=== PATIENT | male | born 1980 | race Caucasian/White ===

== ENCOUNTER 2018-05-16 18:02 | Emergency (ER) | payer OTHER ==
--- NOTE | 2018-05-16 18:27 | EDPHY ---
H & P Stated Complaint: High INR Time Seen by Provider: 05/16/18 18:08 HPI/ROS: CHIEF COMPLAINT: Multiple complaints including left-sided neck pain HISTORY OF PRESENT ILLNESS: This is a 38-year-old male comes to the emergency department from [facility] where he is currently incarcerated. He takes Coumadin 7.5 mg daily for factor 5. INR was checked today and he was found found to have an INR of over 8, prompting his visit to the emergency department. He reports black stools. He tells me that he has had some constipation and has been straining to move his bowels. Patient tells me that he is mostly concerned about left-sided posterior neck pain that he is experiencing. He has been having this pain for the past 5 or 6 days. 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 However he left against medical advice. REVIEW OF SYSTEMS: A ten system review of systems was performed and is negative with the exception of the items mentioned in the HPI. Past medical history: Factor 5 Leiden with reported vascular dissection Kidney stone Past surgical history: None Family history: Factor 5 Leiden Social history: Currently incarcerated. History of IV drug abuse. General Appearance: Alert. Vital signs reviewed. Blood pressure 153/103 at triage. Eyes: Pupils equal and round, no conjunctival injection, no discharge. Anicteric. ENT, Mouth: Mucous membranes are moist, no oropharyngeal erythema or edema. Neck: No lymphadenopathy, supple. No carotid bruits. Respiratory: Lungs are clear to auscultation; no wheezes, rales, or rhonchi. Cardiovascular: Regular rate and rhythm; no murmur, rub, or gallop. Gastrointestinal: Abdomen is soft and nontender, no masses or organomegaly, bowel sounds normal. Skin: Warm and dry, no rashes on exposed skin, normal color. Back: Nontender to palpation over the thoracolumbar spine. No CVAT. Extremities: No lower extremity edema, no calf tenderness or swelling. Neurological: Alert and oriented. Moving all four extremities easily and equally. Cranial nerves II through XII are examined and are intact (visual acuity not tested). Strength is 5 over 5 bilaterally with testing of all major motor groups. Sensation is intact to light touch over all 4 extremities. Psychiatric: Normal affect. - Personal History Current Tetanus/Diphtheria Vaccine: No Current Tetanus Diphtheria and Acellular Pertussis (TDAP): No - Medical/Surgical History Hx Asthma: No Hx Chronic Respiratory Disease: No Hx Diabetes: No Hx Cardiac Disease: No Hx Renal Disease: No Hx Cirrhosis: No Hx Alcoholism: No Hx HIV/AIDS: No Hx Splenectomy or Spleen Trauma: No Other PMH: Factor 5, arterial disseaction in left neck, kidney stones - Social History Smoking Status: Former smoker Constitutional: Initial Vital Signs Temperature (C) 36.7 C 05/16/18 18:04 Heart Rate 80 05/16/18 18:04 Respiratory Rate 14 05/16/18 18:04 Blood Pressure 153/103 H 05/16/18 18:04 O2 Sat (%) 96 05/16/18 18:04 O2 Delivery Mode Room Air Allergies/Adverse Reactions: Penicillins Allergy (Verified 05/16/18 18:03) Home Medications: Medication Instructions Recorded Coumadin 7.5MG (*) 05/16/18 Hydroxyzine HCl 05/16/18 Zyprexa 05/16/18 Medical Decision Making ED Course/Re-evaluation: INR he denies 4.8. Stool is negative for blood. No other evidence of bleeding. [facility] has a protocol for dealing with the elevated INR. For an INR under 5 with no active bleeding it is recommended that Coumadin be held until INR is at an acceptable level and then resumed at the same or a lower dose. I will relay this information to the staff at the [facility]. My plan is that he will be able to return to the [facility]. He has complained about some neck pain to me. He tells me that he has a history of vertebral dissection. I have made an attempt to search records through [employer] and found an emergency department visit elsewhere in February of 2018. He had a CT angiogram of his neck performed at that time. There were no significant abnormalities noted. I have not been able to access any other records to further elucidate his history. Clearly, he is adequately anticoagulated; in fact, he is over anticoagulated. I am not proceeding with CT angiogram of his neck tonight and do not feel that one is warranted. He has a normal neurologic exam. I suspect musculoskeletal neck pain. I also considered malingering. - Data Points Laboratory Results: Laboratory Results 05/16/18 18:50 Medications Given: Discontinued Medications Acetaminophen (Tylenol) 1,000 mg PO EDNOW ONE Stop: 05/16/18 19:42 Last Admin: 05/16/18 19:46 Dose: 1,000 mg Departure - Departure Disposition: Home, Routine, Self-Care Clinical Impression: Elevated INR Condition: Good Instructions: Warfarin (By mouth) Additional Instructions: INR in the emergency room tonight was 4.87. According to the [facility] protocol, for an INR under 5 without active bleeding, recommended treatment is to hold Coumadin until the INR is at an acceptable level. At that point Coumadin can be reinstituted at the same or a lower dose. In the emergency department he had stool that was negative for blood. We have not found other evidence of bleeding. I feel that he can safely return to the [facility] and have his Coumadin held. He received Tylenol 1000 mg for report of neck pain. Referrals: [facility] [Outside] - As per Instructions
[2018-05-16 19:00] LABS: PLATELET COUNT 182 10^3/uL (150-400)
[2018-05-16 19:12] LABS: INR 4.87 (0.83-1.16); PROTIME(PATIENT) 44.9 SEC (12.0-15.0)
[2018-05-16] MEDS ORDERED: ACETAMINOPHEN 500 MG TAB PO ONE (19:41)
[2018-05-16 20:30] VITALS: BP 127/92
== END 2018-05-16 20:29 | disposition home or self-care (01) ==
DX: R79.1 Abnormal coagulation profile (principal); Z87.891 Personal history of nicotine dependence; Z79.01 Long term (current) use of anticoagulants

== ENCOUNTER 2018-07-28 10:38 | Emergency (ER) | payer MEDICAID, OTHER ==
--- NOTE | 2018-07-28 10:55 | EDPHY ---
HPI/HX/ROS/PE/MDM Narrative: CHIEF COMPLAINT: Neck pain, nausea HPI: The patient is a 38 y/o male with a history of Factor V Leiden deficiency currently not on anticoagulants and prior history of vertebral artery dissection 2 years ago who complains of left-sided neck pain worsening over the last 3 days. His pain is on the same side as his prior dissection and feels similar to him. He complains of associated nausea related to the pain. He took a hot shower in an attempt to treat the pain with no relief. He denies any other symptoms including fever, weakness, paresthesias, abdominal pain, diarrhea , vomiting, recent illness, recent trauma. He has been off his Coumadin for 1 month. When he was seen here in May, [facility] records were reviewed and showed a normal neck CTA in February 2018. REVIEW OF SYSTEMS: A comprehensive 10 system review of systems is otherwise negative aside from elements mentioned in the history of present illness. PMH: Factor V Leiden deficiency; vertebral artery dissection, did not undergo surgery. Prior medical records reviewed including ED visit 05/16/18 for neck pain, black stool. SOCIAL HISTORY: History of IV drug abuse. Single. PHYSICAL EXAM: General:Patient is alert, in no acute distress. ENT:Eyes are normal to inspection. ENT inspection normal. Neck: Normal inspection. Full range of motion. Respiratory:No respiratory distress. Breath sounds normal bilaterally. Cardiovascular: Regular rate and rhythm. Strong peripheral pulses. Normal cap refill. Abdomen:The abdomen is nontender to palpation. There are no peritoneal signs. Back: Normal to inspection. No tenderness to palpation. Skin: Normal color. No rash. Warm and dry. Extremities: Normal appearance. Full range of motion. Neuro: Oriented x3. Normal motor function. Normal sensory function. ED Course: This is a 38 y/o male with Factor V Leiden Deficiency not taking his Coumadin and reported history of left vertebral artery dissection not treated surgically who presents with a 3-day history of left-sided neck pain that feels the same as his prior dissection. Exam is unremarkable. Suspect musculoskeletal cause, but due to history recommended neck CTA for further evaluation, which he agrees to. IV established and labs drawn. Neck CTA is negative. Labs normal. Reassessed patient and discussed findings. Exam remains normal. He is comfortable with plan for discharge home. Standard care and follow up instructions given. Return precautions discussed. - Data Points Imaging Results: Imaging Impressions Neck CTA 07/28/18 11:17 Impression: Limited evaluation of the proximal right common carotid artery and vertebral artery due to streak artifact. Otherwise, normal CT angiogram of the head and neck. Stenoses are calculated using [place] Symptomatic Carotid Endarterectomy Trial (NASCET) criteria. Findings and recommendations discussed with Darius Vaughn MD at 1245 hour, 07/28/2018. Imaging: Discussed imaging studies w/ mail caller Radiologist, I viewed and interpreted images myself Laboratory Results: Laboratory Results 07/28/18 11:29 07/28/18 11:29 07/28/18 07/28/18 07/28/18 11:29 11:29 11:29 WBC 4.94 10^3/uL 10^3/uL (3.80-9.50) RBC 5.17 10^6/uL 10^6/uL (4.40-6.38) Hgb 16.0 g/dL g/dL (13.7-17.5) Hct 47.7 % % (40.0-51.0) MCV 92.3 fL fL (81.5-99.8) MCH 30.9 pg pg (27.9-34.1) MCHC 33.5 g/dL g/dL (32.4-36.7) RDW 12.9 % % (11.5-15.2) Plt Count 252 10^3/uL 10^3/uL (150-400) MPV 10.7 fL fL (8.7-11.7) Neut % (Auto) 61.6 % % (39.3-74.2) Lymph % (Auto) 24.1 % % (15.0-45.0) [place] % (Auto) 10.7 % % (4.5-13.0) Eos % (Auto) 2.8 % % (0.6-7.6) Baso % (Auto) 0.4 % % (0.3-1.7) Nucleat RBC Rel Count 0.0 % % (0.0-0.2) Absolute Neuts (auto) 3.04 10^3/uL 10^3/uL (1.70-6.50) Absolute Lymphs (auto) 1.19 10^3/uL 10^3/uL (1.00-3.00) Absolute Monos (auto) 0.53 10^3/uL 10^3/uL (0.30-0.80) Absolute Eos (auto) 0.14 10^3/uL 10^3/uL (0.03-0.40) Absolute Basos (auto) 0.02 10^3/uL 10^3/uL (0.02-0.10) Absolute Nucleated RBC 0.00 10^3/uL 10^3/uL (0-0.01) Immature Gran % 0.4 % % (0.0-1.1) Immature Gran # 0.02 10^3/uL 10^3/uL (0.00-0.10) PT 12.8 SEC SEC (12.0-15.0) INR 0.94 (0.83-1.16) Sodium 139 mEq/L mEq/L (135-145) Potassium 4.2 mEq/L mEq/L (3.5-5.2) Chloride 108 mEq/L mEq/L (97-110) Carbon Dioxide 25 mEq/l mEq/l (22-31) Anion Gap 6 mEq/L mEq/L (6-14) BUN 9 mg/dL mg/dL (7-23) Creatinine 0.7 mg/dL mg/dL (0.7-1.3) Estimated GFR > 60 Glucose 95 mg/dL mg/dL (70-100) Calcium 9.5 mg/dL mg/dL (8.5-10.4) Medications Given: Discontinued Medications Ibuprofen (Motrin) 600 mg PO EDNOW ONE Stop: 07/28/18 12:53 Last Admin: 07/28/18 13:04 Dose: 600 mg General Time Seen by Provider: 07/28/18 10:48 Initial Vital Signs: Initial Vital Signs Temperature (C) 36.8 C 07/28/18 10:44 Heart Rate 88 07/28/18 10:44 Respiratory Rate 18 07/28/18 10:44 Blood Pressure 134/94 H 07/28/18 10:44 O2 Sat (%) 98 07/28/18 10:44 O2 Delivery Mode Room Air Allergies/Adverse Reactions: Penicillins Allergy (Intermediate, Unverified 07/28/18 10:44) skin peels Home Medications: Medication Instructions Recorded NK [No Known Home Meds] 07/28/18 Departure - Departure Disposition: Home, Routine, Self-Care Clinical Impression: Neck pain Condition: Good Instructions: Neck Pain (ED) Additional Instructions: 1. Take Tylenol and ibuprofen as directed as needed for pain over the next few days. 2. Follow up with your primary care provider as needed for unimproved symptoms. 3. Return for worsening of condition. Adult Pain & Fever Control: We recommend Acetaminophen (Tylenol) and Ibuprofen (Motrin,Advil) for pain and fever control. When fever is high or pain severe, both drugs can be used at the same time, but at different intervals. Please note the time differences. Your dose is: Acetaminophen 650mg every 4 to 6 hours Ibuprofen 600mg every 8 hours with food Note: do not take Acetaminophen with Hydrocodone (Vicodin, Lortab) or Oxycodone (Percocet). These medications also contain Acetaminophen. No more than 3000mg of Acetaminophen should be taken in 24 hours (for an adult). Referrals: [facility],. [Clinic] - As per Instructions Report Scribed for: Darius Vaughn Report Scribed by: Christy Rolle Date of Report: 07/28/18 Time of Report: 11:04 Physician Review and Approval Statement: Portions of this note were transcribed by an ED scribe. I personally performed the history, physical exam, and medical decision making; and confirm the accuracy of the information in the transcribed note.
[2018-07-28 11:38] LABS: PLATELET COUNT 252 10^3/uL (150-400)
[2018-07-28 11:47] LABS: INR 0.94 (0.83-1.16); PROTIME(PATIENT) 12.8 SEC (12.0-15.0)
[2018-07-28] MEDS ORDERED: IOPAMIDOL (ISOVUE 370) 100 ML BTL IV ONE (11:52)
[2018-07-28] MEDS ORDERED: IBUPROFEN 600 MG TAB PO ONE (12:52)
[2018-07-28 13:08] VITALS: BP 145/98
== END 2018-07-28 13:08 | disposition home or self-care (01) ==
DX: M54.2 Cervicalgia (principal); D68.2 Hereditary deficiency of other clotting factors; Z88.0 Allergy status to penicillin
CPT/HCPCS: Q9967

== ENCOUNTER 2018-12-15 21:13 | Emergency (ER) | payer OTHER, MEDICAID ==
[2018-12-15] MEDS ORDERED: HYDROmorphONE/DILAUDID 2 MG/ML INJ IVP ONE (21:23)
[2018-12-15] MEDS ORDERED: HYDROCODONE/APAP 5/325 TAB PO ONE (22:34)
[2018-12-15] MEDS ORDERED: IBUPROFEN 600 MG TAB PO ONE (22:34)
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
[2018-12-15 23:38] VITALS: BP 118/76
== END 2018-12-15 23:36 | disposition home or self-care (01) ==
LOC: EDUNIT#
PROC: 2W38X1Z Immobilization of Right Upper Extremity using Splint (ICD-10-PCS; principal; 2018-12-15)
DX: S42.401A Unspecified fracture of lower end of right humerus, initial encounter for closed fracture (principal); V19.9XXA Pedal cyclist (driver) (passenger) injured in unspecified traffic accident, initial encounter; Y92.480 Sidewalk as the place of occurrence of the external cause
CPT/HCPCS: 96374; A4565; J1170